=== PATIENT | female | born 2005 | race Caucasian/White ===

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

== ENCOUNTER 2023-03-18 18:55 | Emergency (ER) | payer OTHER ==
[~2023-03-18] VITALS: Ht 172.7 cm; Wt 110.8 kg
[~2023-03-18 18:55] MED LIST changes: +HYDROXYZINE HCL10 MG PO
[2023-03-18] MEDS ORDERED: NAPROXEN500 MG PO (19:38)
[2023-03-18] MEDS ORDERED: VITAMIN D21250 MCG PO (19:38)
[2023-03-18] MEDS ORDERED: LORATADINE10 MG PO (19:38)
[2023-03-18] MEDS ORDERED: DEXAMETHASONE SOD PHOS 10 MG/ML VIAL PO ONE (20:00)
[2023-03-18] MEDS ORDERED: diphenhydrAMINE HCL 50 MG CAP PO ONE (20:00)
== END 2023-03-18 21:08 | disposition home or self-care (01) ==
LOC: ED 18:55
DX: J20.8 Acute bronchitis due to other specified organisms (principal); R09.82 Postnasal drip; J45.909 Unspecified asthma, uncomplicated; F41.9 Anxiety disorder, unspecified; Z91.018 Allergy to other foods; Z88.5 Allergy status to narcotic agent; Z79.899 Other long term (current) drug therapy
CPT/HCPCS: 71045; 84703; 99283-25; J1100; Q0163

== ENCOUNTER 2023-11-11 11:33 | Emergency (ER) | payer OTHER ==
[~2023-11-11] VITALS: Ht 172.7 cm; Wt 100.0 kg
[~2023-11-11 11:33] MED LIST changes: +LORATADINE10 MG PO; +NAPROXEN500 MG PO; +VITAMIN D21250 MCG PO
[2023-11-11] MEDS ORDERED: ondansetron HCL 4 MG/2 ML VIAL IV ONE (12:15)
[2023-11-11] MEDS ORDERED: SODIUM CHLORIDE 0.9% 1,000 ML IV PRN (12:15)
[2023-11-11 12:42] LABS: BASOPHILS 0.4 % (0-2); EOSINOPHILS 1.5 % (0-6); HEMATOCRIT 39.5 % (35.0-50.0); HEMOGLOBIN 13.7 g/dL (12.0-18.0); LYMPHOCYTES 19.7 % (24-44); MCHC 34.6 g/dl (30-36); MCV 78.1 fl (81-99); MONOCYTES 5.8 % (0-12); NEUTROPHILS 72.6 % (39-80); PLATELET COUNT 280 K/uL (140-440); RBC 5.06 M/ul (4.3-5.7); RDW 15.4 (10.5-15.0)
[2023-11-11 12:59] LABS: ALBUMIN 3.8 g/dL (3.4-5.0); ANION GAP 10.4 (7-21); BILIRUBIN, TOTAL 0.4 ng/dL (0.2-1.0); BUN/CREATININE RATIO 7.79 (6.0-28.6); CALCIUM 9.1 mg/dL (8.5-10.1); CREATININE, SERUM 0.77 mg/dL (0.55-1.02); POTASSIUM 3.4 mmol/L (3.5-5.1); PROTEIN, TOTAL 7.6 g/dL (6.4-8.2)
[2023-11-11 13:21] LABS: BILIRUBIN, URINE NEGATIVE (negative); BLOOD/HGB, URINE TRACE-I (Negative); KETONE, URINE NEGATIVE (Negative); LEUK ESTERASE, URINE NEGATIVE (negative); NITRITE, URINE NEGATIVE (negative)
[2023-11-11 13:32] LABS: EPITHELIAL CELLS, URINE SQUAMOUS 3+ /lpf (0-1+)
[2023-11-11 13:33] LABS: BACTERIA, URINE 2+ /hpf (negative); CASTS, URINE NONE SEEN \\lpf; COLLECTION TYPE, URINE CLEAN CATCH; CRYSTALS, URINE NONE SEEN (0-1+); REFLEX CULTURE, URINE No (No)
[2023-11-11] MEDS ORDERED: ONDANSETRON ODT8 MG PO (13:58)
[2023-11-11 14:20] VITALS: BP 146/88
== END 2023-11-11 14:21 | disposition home or self-care (01) ==
LOC: ED 11:33
PROVIDERS: Emergency Medicine
DX: R11.2 Nausea with vomiting, unspecified (principal); J45.909 Unspecified asthma, uncomplicated; Z91.018 Allergy to other foods; Z88.5 Allergy status to narcotic agent; Z79.899 Other long term (current) drug therapy
CPT/HCPCS: 36415; 71045; 80053; 81001; 83690; 84703; 85025; 96374; 99284-25; J2405; J7030

== ENCOUNTER 2024-05-09 18:21 | Emergency (ER) | payer OTHER ==
[~2024-05-09] VITALS: Ht 177.8 cm; Wt 103.2 kg
[~2024-05-09 18:21] MED LIST changes: +ONDANSETRON ODT8 MG PO
[2024-05-09] MEDS ORDERED: LACTATED RINGER'S 1,000 ML IV ONE (20:00)
[2024-05-09] MEDS ORDERED: ondansetron HCL 4 MG/2 ML VIAL IV ONE (20:00)
[2024-05-09 20:34] LABS: BASOPHILS 0.4 % (0-2); EOSINOPHILS 0.6 % (0-6); HEMATOCRIT 40.6 % (35.0-50.0); LYMPHOCYTES 18.3 % (24-44); MCH 26.7 (27-36); MCHC 34.5 g/dl (30-36); MCV 77.4 fl (81-99); MONOCYTES 5.5 % (0-12); NEUTROPHILS 75.2 % (39-80); PLATELET COUNT 292 K/uL (140-440); RBC 5.25 M/ul (4.3-5.7)
[2024-05-09] MEDS ORDERED: METOCLOPRAMIDE HCL 10 MG/2 ML SDV IV ONE (20:45)
[2024-05-09 21:10] LABS: ALBUMIN 4.1 g/dL (3.4-5.0); ANION GAP 13.7 (7-21); BILIRUBIN, TOTAL 0.9 mg/dL (0.2-1.0); BUN/CREATININE RATIO 12.5 (6.0-28.6); CALCIUM 9.4 mg/dL (8.5-10.1); CREATININE, SERUM 0.56 mg/dL (0.55-1.02); POTASSIUM 4.7 mmol/L (3.5-5.1); PROTEIN, TOTAL 8.2 g/dL (6.4-8.2)
[2024-05-09] MEDS ORDERED: REGLAN10 MG PO (21:10)
[2024-05-09] MEDS ORDERED: PROMETHAZINE HCL 25 MG HOME.PACK PO ONE (21:15)
[2024-05-09 21:18] LABS: BILIRUBIN, URINE POSITIVE (negative); BLOOD/HGB, URINE NEGATIVE (Negative); KETONE, URINE SMALL (Negative); LEUK ESTERASE, URINE NEGATIVE (negative); NITRITE, URINE NEGATIVE (negative)
[2024-05-09 21:23] VITALS: BP 106/79
== END 2024-05-09 21:23 | disposition home or self-care (01) ==
LOC: ED 18:21
PROVIDERS: Family Medicine
DX: O21.0 Mild hyperemesis gravidarum (principal); Z3A.08 8 weeks gestation of pregnancy; Z79.899 Other long term (current) drug therapy; Z91.018 Allergy to other foods; Z88.5 Allergy status to narcotic agent
CPT/HCPCS: 36415; 80053; 81003; 83735; 84702; 85025; 96374; 99284-25; J2765; J7121

== ENCOUNTER 2024-06-11 14:31 | Emergency (ER) | payer OTHER ==
[~2024-06-11] VITALS: Ht 177.8 cm; Wt 97.1 kg
[~2024-06-11 14:31] MED LIST changes: +REGLAN10 MG PO
[2024-06-11] MEDS ORDERED: ONDANSETRON ODT4 MG PO (14:48)
[2024-06-11] MEDS ORDERED: ondansetron HCL 4 MG/2 ML VIAL IV ONE (15:00)
[2024-06-11] MEDS ORDERED: SODIUM CHLORIDE 0.9% 2,000 ML IV PRN (15:00)
[2024-06-11] MEDS ORDERED: METOCLOPRAMIDE HCL 10 MG/2 ML SDV IV ONE ×2 (15:00)
[2024-06-11 15:12] LABS: BASOPHILS 0.5 % (0-2)
[2024-06-11 15:13] LABS: BILIRUBIN, URINE NEGATIVE (negative); BLOOD/HGB, URINE TRACE-I (Negative); KETONE, URINE SMALL (Negative); LEUK ESTERASE, URINE TRACE (negative); NITRITE, URINE NEGATIVE (negative)
[2024-06-11 15:19] LABS: BACTERIA, URINE 2+ /hpf (negative); CRYSTALS, URINE NONE SEEN (0-1+); EPITHELIAL CELLS, URINE SQUAMOUS 1+ /lpf (0-1+)
[2024-06-11 15:20] LABS: CASTS, URINE NONE SEEN \\lpf; COLLECTION TYPE, URINE CLEAN CATCH; REFLEX CULTURE, URINE Yes (No)
[2024-06-11 15:34] LABS: ALBUMIN 3.8 g/dL (3.4-5.0); ALBUMIN/GLOBULIN RATIO 1.06 (1.1-2.4); ANION GAP 13.6 (7-21); BILIRUBIN, TOTAL 0.6 mg/dL (0.2-1.0); BUN/CREATININE RATIO 6.25 (6.0-28.6); CALCIUM 9.2 mg/dL (8.5-10.1); CREATININE, SERUM 0.48 mg/dL (0.55-1.02); MAGNESIUM 1.9 mg/dL (1.8-2.4); POTASSIUM 3.6 mmol/L (3.5-5.1); PROTEIN, TOTAL 7.4 g/dL (6.4-8.2)
[2024-06-11 15:44] LABS: EOSINOPHILS 1.2 % (0-6); HEMATOCRIT 35.8 % (35.0-50.0); HEMOGLOBIN 12.3 g/dL (12.0-18.0); LYMPHOCYTES 21.8 % (24-44); MCH 27.1 (27-36); MCHC 34.5 g/dl (30-36); MCV 78.7 fl (81-99); MONOCYTES 7.5 % (0-12); PLATELET COUNT 180 K/uL (140-440); RBC 4.55 M/ul (4.3-5.7); RDW 15.8 (10.5-15.0)
[2024-06-11 15:49] VITALS: BP 124/73
== END 2024-06-11 15:55 | disposition home or self-care (01) ==
LOC: ED 14:31
PROVIDERS: Emergency Medicine
DX: O21.1 Hyperemesis gravidarum with metabolic disturbance (principal); J45.909 Unspecified asthma, uncomplicated; Z88.5 Allergy status to narcotic agent; Z91.018 Allergy to other foods
CPT/HCPCS: 36415; 80053; 81001; 83735; 85025; 87088; 96374; 96375; 99284-25; J2405; J2765; J7030

== ENCOUNTER 2024-12-21 08:15 | Inpatient (IN) | payer OTHER ==
[~2024-12-21] VITALS: Ht 177.8 cm; Wt 97.5 kg
[~2024-12-21 08:15] MED LIST changes: +ONDANSETRON ODT4 MG PO
[2024-12-21] MEDS ORDERED: MAGNESIUM HYDROXIDE/AL HYDROX 30 ML CUP PO PRN ×2 (08:45→13:15)
[2024-12-21] MEDS ORDERED: CALCIUM CARBONATE 500 MG CHEW PO PRN ×2 (08:45→13:15)
[2024-12-21] MEDS ORDERED: LIDOCAINE HCL 1% 30 ML SDV INJ PRN (08:45)
[2024-12-21] MEDS ORDERED: TERBUTALINE SULFATE 1 MG/ML AMP SUB-Q PRN (08:45)
[2024-12-21 09:19] LABS: MCH 25.7 PG (25.6-32.2); MCHC 32.8 g/dL (32.2-35.5); MCV 78.4 fL (79.4-94.8); RBC 4.59 M/uL (3.93-5.22)
[2024-12-21 09:59] VITALS: BP 125/58
[2024-12-21] MEDS ORDERED: ePHEDrine sulfate 5 MG/ML SYRINGE IV PRN (10:00)
[2024-12-21] MEDS ORDERED: ROPIVACAINE 0.2% 200 ML BAG EPIDURAL SCH (10:00)
[2024-12-21] MEDS ORDERED: LACTATED RINGER'S 500 ML IV PRN (10:00)
[2024-12-21] MEDS ORDERED: LACTATED RINGER'S 2,000 ML IV ONE (10:00)
[2024-12-21 10:04] LABS: ABO A; RH NEGATIVE
[2024-12-21 10:05] LABS: ANTIBODY SCREEN NEGATIVE
[2024-12-21] MEDS ORDERED: OXYTOCIN/0.9 % SODIUM CHLORIDE 500 ML IV SCH ×2 (10:45→13:15)
--- NOTE | 2024-12-21 12:13 | PR ---
[facility] [address] [place], [place] [address] Signed Progress Notes IP Datetime Report Generated by CPMarizol: 12/21/2024 12:13 PROGRESS NOTES: [id number] Impression: Normal Progression of Labor; Reassuring Heart Rate Plan: Continue Present Management; Anticipate Vaginal Delivery Informed Consent Obtain: Vaginal Delivery VITAL SIGNS: [id number] Vital Signs: Reviewed; Within Normal Limits EXAM: [id number] Dilatation: 10.0 Effacement: 100 Effacement: 95 Effacement: 80 Effacement: 80 Effacement: 75 Effacement: 80 Effacement: 60 Effacement: thic Station: 0 Station: -1 Station: -2 Station: -2 Station: -3 Station: -3 Station: -2 Station: -3 Contractions: Irregular and difficult to trace MEMBRANES: [id number] Amniotic Fluid Color: Clear Comments: Pt seen and evaluated. Doing well. Comfortable w/ epidural but c/o pelvic pressure. Complete and zero station per RN. Will prepare to start pushing. Reviewed anticipated course of labor / delivery. All questions answered. FETUS A: [id number] FHR Baseline: 120 Variability: Minimal - >Undetectable to <=5bpm Accelerations: 15X15 Decelerations: None FHR Category: Category II Presentation: Vertex *Electronically Signed* 12/21/24 Ramses3 JANIE WELCH) DO PATIENT NAME: AUSTIN MCKEE PROGRESS NOTE DATE OF : 03 PHYSICIAN: JANIE WELCH (JD) DO RPT #: [id number] REPORT IS CONFIDENTIAL AND NOT TO BE RELEASED WITHOUT AUTHORIZATION [facility] [address], [place] [address] Signed Comments on Fetus A: No evidence of metabolic acidosis FETUS B: [id number] Signing Physician: Janie Welch DO Copies: ~ *Electronically Signed* 12/21/24 1213 JANIE WELCH) DO PATIENT NAME: AUSTIN MCKEE PROGRESS NOTE DATE OF : 03 PHYSICIAN: JANIE WELCH (JD) DO RPT #: [id number] REPORT IS CONFIDENTIAL AND NOT TO BE RELEASED WITHOUT AUTHORIZATION
[2024-12-21] MEDS ORDERED: WITCH HAZEL/GLYCERIN 1 EA PAD TOP PRN (13:15)
[2024-12-21] MEDS ORDERED: ACETAMINOPHEN 325 MG TAB PO PRN (13:15)
[2024-12-21] MEDS ORDERED: HYDROCORTISONE ACETATE 25 MG SUPP PR PRN (13:15)
[2024-12-21] MEDS ORDERED: IBUPROFEN 600 MG TAB PO PRN (13:15)
[2024-12-21] MEDS ORDERED: HYDROCODONE/ACETA 5/325 TAB PO PRN (13:15)
[2024-12-21] MEDS ORDERED: MAGNESIUM HYDROXIDE 30 ML UDC PO PRN (13:15)
[2024-12-21] MEDS ORDERED: BENZOCAINE 60 ML AEROSOL TOP PRN (13:15)
[2024-12-21] MEDS ORDERED: OXYCODONE/APAP 5/325 TAB PO PRN (13:15)
[2024-12-21] MEDS ORDERED: SENNOSIDES/DOCUSATE 1 EA TAB PO SCH (21:00)
[2024-12-22 05:39] LABS: MCH 25.7 PG (25.6-32.2); MCHC 32.4 g/dL (32.2-35.5); MCV 79.2 fL (79.4-94.8); RBC 4.09 M/uL (3.93-5.22)
[2024-12-22 07:05] LABS: ABO A; ANTIBODY SCREEN NEGATIVE; FETAL HEMOGLOBIN SCREEN NEGATIVE; RH NEGATIVE; RHIG DOSE 1; RHIG STATUS CANDIDATE
--- NOTE | 2024-12-22 10:02 | PR ---
[facility] [address] [place], [place] [address] Signed PP Progress Notes Datetime Report Generated by CPN: 12/22/2024 10:02 SUBJECTIVE: [id number] Pain: Within Normal Limits Nausea/Vomiting: Denies Flatus: Yes Bowel Movement: No Vital Signs: [id number] Vital Signs: Reviewed; Within Normal Limits EXAM: Ongoing Cardiovascular: Normal Respiratory: Normal Abdomen/Uterus: Normal Lochia: Normal Vulva/Perineum: Not Done Breasts: Not Done CVA Tenderness: Normal Extremities: Normal Incision: Not Applicable Progress: Normal Exam Comments: Fundus firm U-2 nontender IMPRESSION/PLAN/PROCEDURES: [id number] Impression: Normal Progression Plan: Discharge Progress Notes: Pt seen and examined. Doing well. Ambulating, voiding, and tolerating full diet. Pain and lochia minimal. well. STRONGLY desires d/c home today. Reviewed d/c instructions / plans / medications. Undecided on pp contraception. Reviewed options and pt will consider and agrees to interval abstinence until 6 wk pp visit. Reviewed precautions for pp depression / other complications. All questions answered. Signing Physician: Janie Welch DO Copies: ~ *Electronically Signed* 12/22/24 1002 JANIE WELCH (ZA) DO PATIENT NAME: AUSTIN MCKEE PROGRESS NOTE DATE OF : 03 PHYSICIAN: JANIE WELCH (JD) DO RPT #: [id number] REPORT IS CONFIDENTIAL AND NOT TO BE RELEASED WITHOUT AUTHORIZATION
== END 2024-12-22 14:18 | disposition home or self-care (01) | DRG 807 ==
LOC: FBC → FBCO 08:15 → FBC 08:30 → EDSTATUS 12-23 08:22 → FBC 12-23 08:49
PROVIDERS: ADMIT Obstetrics & Gynecology; ATTEND Obstetrics & Gynecology
PROC: 10E0XZZ Delivery of Products of Conception, External Approach (ICD-10-PCS; principal; 2024-12-21)
PROC: 0UQMXZZ Repair Vulva, External Approach (ICD-10-PCS; 2024-12-21)
PROC: 4A1HXCZ Monitoring of Products of Conception, Cardiac Rate, External Approach (ICD-10-PCS; 2024-12-21)
PROC: 00HU33Z Insertion of Infusion Device into Spinal Canal, Percutaneous Approach (ICD-10-PCS; 2024-12-21)
PROC: 3E0R3BZ Introduction of Anesthetic Agent into Spinal Canal, Percutaneous Approach (ICD-10-PCS; 2024-12-21)
DX: O69.81X0 Labor and delivery complicated by cord around neck, without compression, not applicable or unspecified (principal); Z37.0 Single live birth; Z3A.39 39 weeks gestation of pregnancy; O71.82 Other specified trauma to perineum and vulva; O77.0 Labor and delivery complicated by meconium in amniotic fluid; Z14.1 Cystic fibrosis carrier; O26.893 Other specified pregnancy related conditions, third trimester; Z67.11 Type A blood, Rh negative; Z88.5 Allergy status to narcotic agent
CPT/HCPCS: 36415; 83030; 85027; 86850; 86900; 86901; A9270; J2405; J2790; J7121